=== PATIENT | male | born 1945 | race Hispanic/Latino ===

== ENCOUNTER → 2018-02-15 | Outpatient (CLI) | payer OTHER ==
[~2018-02-15] VITALS: Ht 172.7 cm; Wt 85.7 kg
[~2018-02-15] MED LIST: REGADENOSON 0.4 MG/5 ML PF SYG IVP SCH
== END | disposition home or self-care (01) ==
LOC: SHCH 08:52
PROVIDERS: ATTEND Internal Medicine Cardiovascular Disease
DX: I10 Essential (primary) hypertension (principal)
CPT/HCPCS: 78452; 93017; 96374; A9500 ×2; J2785

== ENCOUNTER → 2023-07-21 | Outpatient (CLI) | payer OTHER | END | disposition home or self-care (01) | LOC: OIH 14:52 | PROVIDERS: ATTEND Internal Medicine Cardiovascular Disease | DX: Z13.6 Encounter for screening for cardiovascular disorders (principal) | CPT/HCPCS: 75571 ==

== ENCOUNTER → 2023-08-27 | Outpatient (CLI) | payer OTHER | END | disposition home or self-care (01) | LOC: SHCH 07:33 | PROVIDERS: ATTEND Internal Medicine Cardiovascular Disease | DX: I35.0 Nonrheumatic aortic (valve) stenosis (principal); R01.1 Cardiac murmur, unspecified | CPT/HCPCS: 93306 ==

== ENCOUNTER → 2023-09-28 | Outpatient (CLI) | payer OTHER ==
[2023-09-28] MEDS: REGADENOSON 0.4 MG/5 ML PF SYG IVP ONE (13:19)
== END | disposition home or self-care (01) ==
LOC: SHCH 08:21
PROVIDERS: ATTEND Internal Medicine Cardiovascular Disease
DX: I25.10 Atherosclerotic heart disease of native coronary artery without angina pectoris (principal); I35.0 Nonrheumatic aortic (valve) stenosis; R07.89 Other chest pain; R06.00 Dyspnea, unspecified
CPT/HCPCS: 78452; 96374; 93017; J2785; A9500 ×2

== ENCOUNTER 2023-11-12 11:03 | Emergency (ER) | payer OTHER ==
[~2023-11-12] VITALS: Ht 172.7 cm; Wt 88.5 kg
[2023-11-12] MEDS: DEXAMETHASONE SOD PHOSPHATE 4 MG/ML 1ML VIAL IM ONE (13:10)
[2023-11-12] MEDS: LIDOCAINE 5% TOPICAL PATCH TP ONE (13:10)
[2023-11-12] MEDS: KETOROLAC 60 MG VIAL (30MG/ML) IM ONE (13:12)
[2023-11-12] MEDS ORDERED: CYCL5TAB PO (14:24)
[2023-11-12] MEDS ORDERED: IBUP-2070 PO (14:24)
[2023-11-12 14:30] VITALS: BP 141/86; PULSE 64; RESP 16; O2SAT 100
== END 2023-11-12 14:32 | disposition home or self-care (01) ==
LOC: EDH 11:03
DX: M54.41 Lumbago with sciatica, right side (principal); I10 Essential (primary) hypertension; Z90.49 Acquired absence of other specified parts of digestive tract
CPT/HCPCS: 99284; 96372 ×2; J1100; J1885

== ENCOUNTER → 2024-10-04 | Outpatient (CLI) | payer OTHER ==
[~2024-10-04] MED LIST changes: +CYCL5TAB3 PO; +IBUP-2070 PO; -REGADENOSON 0.4 MG/5 ML PF SYG IVP SCH
== END | disposition home or self-care (01) ==
LOC: SHCH 14:58
PROVIDERS: ATTEND Internal Medicine Cardiovascular Disease
DX: I35.0 Nonrheumatic aortic (valve) stenosis (principal)
CPT/HCPCS: 93306